=== PATIENT | male | born 1940 | race Caucasian/White ===

== ENCOUNTER 2021-02-08 05:26 | Inpatient (IN) | payer MEDICARE ==
[~2021-02-08] VITALS: Ht 175.3 cm; Wt 80.3 kg
[~2021-02-08 05:26] MED LIST: ALENDRONATE SOD35 MG; AMLODIPINE BESYL5 MG PO; CEPHALEXIN500 MG PO; DOCUSATE SODIU100 MG PO; FINASTERIDE5 MG PO; FLOMAX0.4 MG PO; NEURONTIN400 MG PO; TIZANIDINE HCL2 M1; TYLENOL325 MG PO
[2021-02-08] MEDS ORDERED: SODIUM CHLORIDE 0.9% 1000ML 1,000 ML ONE (05:54)
[2021-02-08] MEDS ORDERED: CEFTRIAXONE 1 GM VIAL ONE (05:54)
[2021-02-08] MEDS ORDERED: GENTAMICIN 80MG/NS 100 ML 200 ML IV ONE (05:55)
[2021-02-08 06:58] LABS: BASOPHILS % 0.5 % (0.0-1.0); EOSINOPHILS # (AUTO) 0.2 (0.0-0.4); EOSINOPHILS % 3.9 % (0.0-6.0); HEMATOCRIT 37.5 % (38.2-49.6); HEMOGLOBIN 12.4 g/dL (14.0-18.0); LYMPHOCYTES # (AUTO) 2.2 (1.0-3.2); LYMPHOCYTES % 38.5 % (18.0-39.1); MEAN CORPUSCULAR HEMOGLOBIN 30.4 pg (28-32); MEAN CORPUSCULAR HGB CONC 33.1 g/dL (31-35); MEAN CORPUSCULAR VOLUME 91.9 fL (81-99); MONOCYTES # (AUTO) 0.8 (0.2-0.8); MONOCYTES % 13.4 % (4.4-11.3); NEUTROPHILS # (AUTO) 2.4 (2.1-6.9); NEUTROPHILS % 43.5 % (38.7-80.0); PLATELET COUNT 297 x10e3/uL (140-360); RED BLOOD COUNT 4.08 x10e6/uL (4.3-5.7); RED CELL DISTRIBUTION WIDTH 13.3 % (11.7-14.4)
[2021-02-08] MEDS ORDERED: IOPAMIDOL 300MG/ML 50ML INFUS..BTL IV ONE (07:12)
[2021-02-08 07:16] LABS: CALCIUM 8.8 mg/dL (8.4-10.2); CREATININE, SERUM 0.88 mg/dL (0.72-1.25)
[2021-02-08] MEDS ORDERED: BELLADONNA/OPIUM 30 MG SUPP RC ONE (08:02)
[2021-02-08] MEDS ORDERED: ONDANSETRON HCL INJ 2MG/ML 2ML 2 MG/ML VIAL IV PRN (08:30)
[2021-02-08] MEDS ORDERED: PHENAZOPYRIDINE HCL 100 MG TAB PO PRN (08:30)
[2021-02-08] MEDS ORDERED: B&O 60MG R/S 60 MG SUPP PR PRN (08:30)
[2021-02-08] MEDS ORDERED: DIPHENHYDRAMINE HCL 25 MG CAP PO PRN (08:30)
[2021-02-08] MEDS: CEFTRIAXONE 1 GM in SODIUM CHLORIDE 0.9% 50ML 50 ML IV SCH (09:00)
[2021-02-08] MEDS: DOCUSATE SODIUM 100 MG CAP PO SCH ×2 (09:00→18:00)
[2021-02-08 09:10] LABS: BASOPHILS % 0.6 % (0.0-1.0); EOSINOPHILS # (AUTO) 0.2 (0.0-0.4); EOSINOPHILS % 2.1 % (0.0-6.0); HEMATOCRIT 37.7 % (38.2-49.6); HEMOGLOBIN 12.5 g/dL (14.0-18.0); LYMPHOCYTES # (AUTO) 1.5 (1.0-3.2); LYMPHOCYTES % 21.8 % (18.0-39.1); MEAN CORPUSCULAR HEMOGLOBIN 31.2 pg (28-32); MEAN CORPUSCULAR HGB CONC 33.2 g/dL (31-35); MONOCYTES # (AUTO) 0.5 (0.2-0.8); MONOCYTES % 6.4 % (4.4-11.3); NEUTROPHILS # (AUTO) 4.8 (2.1-6.9); NEUTROPHILS % 68.8 % (38.7-80.0); PLATELET COUNT 257 x10e3/uL (140-360); RED BLOOD COUNT 4.01 x10e6/uL (4.3-5.7); RED CELL DISTRIBUTION WIDTH 13.2 % (11.7-14.4)
[2021-02-08] MEDS ORDERED: ACETAMINOPHEN/CODEINE 300MG - 30MG TAB ONE (09:29)
[2021-02-08 09:30] LABS: ANION GAP 11.9 mmol/L (8-16); CALCIUM 8.5 mg/dL (8.4-10.2); CREATININE, SERUM 0.86 mg/dL (0.72-1.25); POTASSIUM 3.9 mmol/L (3.5-5.1)
[2021-02-08 12:16] VITALS: BP 119/80
[2021-02-08] MEDS ORDERED: LIDOCAINE HCL 2% LOCAL INJ 5 ML SDV VIAL INJ ONE (12:49)
[2021-02-08] MEDS ORDERED: DEXAMETHASONE SOD PHOS INJ 4 MG/ML VIAL ONE (12:49)
[2021-02-08] MEDS ORDERED: ONDANSETRON HCL INJ 2MG/ML 2ML 2 MG/ML VIAL ONE (12:49)
[2021-02-08] MEDS ORDERED: EPHEDRINE SULFATE INJ 50 MG/ML VIAL ONE (12:49)
[2021-02-08] MEDS ORDERED: POVIDONE IODINE 0.05% 0.05 % ML PO ONE (12:49)
[2021-02-08] MEDS ORDERED: SEVOFLURANE INHAL SOLN 250 ML PEN BTL ONE (12:49)
[2021-02-08] MEDS ORDERED: PROPOFOL IV EMULSION 10 MG/ML 20 ML VIAL ONE (12:49)
[2021-02-08 13:11] VITALS: BP 119/80
[2021-02-08] MEDS ORDERED: FENTANYL CITRATE/PF 100MCG/2 ML INJ ONE (13:24)
[2021-02-08] MEDS: D5.45%NS/KCL 20MEQ 1,000 ML IV SCH ×2 (14:30→22:52)
[2021-02-08 15:51] VITALS: BP 122/76
[2021-02-08 20:58] VITALS: BP 107/66
[2021-02-09] VITALS (9 sets, daily range): BP systolic 105–129; BP diastolic 50–93
[2021-02-09 05:04] LABS: BASOPHILS % 0.1 % (0.0-1.0); EOSINOPHILS % 0.2 % (0.0-6.0); HEMATOCRIT 33.4 % (38.2-49.6); HEMOGLOBIN 11.3 g/dL (14.0-18.0); LYMPHOCYTES # (AUTO) 2.2 (1.0-3.2); LYMPHOCYTES % 23.6 % (18.0-39.1); MEAN CORPUSCULAR HEMOGLOBIN 30.9 pg (28-32); MEAN CORPUSCULAR HGB CONC 33.8 g/dL (31-35); MEAN CORPUSCULAR VOLUME 91.3 fL (81-99); MONOCYTES # (AUTO) 1.1 (0.2-0.8); MONOCYTES % 11.9 % (4.4-11.3); NEUTROPHILS # (AUTO) 5.9 (2.1-6.9); PLATELET COUNT 258 x10e3/uL (140-360); RED BLOOD COUNT 3.66 x10e6/uL (4.3-5.7); RED CELL DISTRIBUTION WIDTH 13.2 % (11.7-14.4)
[2021-02-09 05:20] LABS: CALCIUM 8.2 mg/dL (8.4-10.2); CREATININE, SERUM 0.76 mg/dL (0.72-1.25)
[2021-02-09] MEDS: DOCUSATE SODIUM 100 MG CAP PO SCH ×2 (08:11→18:11)
[2021-02-09] MEDS: CEFTRIAXONE 1 GM in SODIUM CHLORIDE 0.9% 50ML 50 ML IV SCH (08:11)
[2021-02-09] MEDS ORDERED: DOCUSATE SODIUM 100 MG CAP PO SCH (09:00)
[2021-02-09] MEDS: FINASTERIDE 5 MG TAB PO SCH (10:27)
[2021-02-09] MEDS: SODIUM CHLORIDE 0.45% 1,000 ML IV SCH ×2 (10:27→23:50)
[2021-02-09] MEDS: TAMSULOSIN HCL 0.4 MG CAP PO SCH (10:27)
[2021-02-09] MEDS: AMLODIPINE BESYLATE 5 MG TAB PO SCH (10:27)
[2021-02-09] MEDS: GABAPENTIN 100 MG CAP PO SCH (20:50)
[2021-02-10] VITALS (8 sets, daily range): BP systolic 129–159; BP diastolic 81–93
[2021-02-10 04:47] LABS: BASOPHILS % 0.5 % (0.0-1.0); EOSINOPHILS # (AUTO) 0.3 (0.0-0.4); EOSINOPHILS % 4.2 % (0.0-6.0); HEMOGLOBIN 12.5 g/dL (14.0-18.0); LYMPHOCYTES # (AUTO) 2.6 (1.0-3.2); LYMPHOCYTES % 34.3 % (18.0-39.1); MEAN CORPUSCULAR HEMOGLOBIN 30.8 pg (28-32); MEAN CORPUSCULAR HGB CONC 33.8 g/dL (31-35); MEAN CORPUSCULAR VOLUME 91.1 fL (81-99); MONOCYTES # (AUTO) 0.9 (0.2-0.8); MONOCYTES % 12.2 % (4.4-11.3); NEUTROPHILS # (AUTO) 3.7 (2.1-6.9); NEUTROPHILS % 48.5 % (38.7-80.0); PLATELET COUNT 272 x10e3/uL (140-360); RED BLOOD COUNT 4.06 x10e6/uL (4.3-5.7); RED CELL DISTRIBUTION WIDTH 13.1 % (11.7-14.4)
[2021-02-10] MEDS: ACETAMINOPHEN/CODEINE 300MG - 30MG TAB PO PRN (05:10)
[2021-02-10 05:19] LABS: CALCIUM 8.3 mg/dL (8.4-10.2); CREATININE, SERUM 0.72 mg/dL (0.72-1.25)
[2021-02-10] MEDS: AMLODIPINE BESYLATE 5 MG TAB PO SCH (08:04)
[2021-02-10] MEDS: CEFTRIAXONE 1 GM in SODIUM CHLORIDE 0.9% 50ML 50 ML IV SCH (08:04)
[2021-02-10] MEDS: FINASTERIDE 5 MG TAB PO SCH (08:04)
[2021-02-10] MEDS: DOCUSATE SODIUM 100 MG CAP PO SCH ×2 (08:04→16:43)
[2021-02-10] MEDS: TAMSULOSIN HCL 0.4 MG CAP PO SCH (08:04)
[2021-02-10] MEDS: GABAPENTIN 100 MG CAP PO SCH (21:04)
[2021-02-11] VITALS: BP 153/97
[2021-02-11 04:00] VITALS: BP 135/88
[2021-02-11 05:03] LABS: BASOPHILS % 0.5 % (0.0-1.0); EOSINOPHILS # (AUTO) 0.3 (0.0-0.4); EOSINOPHILS % 3.1 % (0.0-6.0); HEMATOCRIT 38.5 % (38.2-49.6); HEMOGLOBIN 12.9 g/dL (14.0-18.0); LYMPHOCYTES # (AUTO) 2.6 (1.0-3.2); LYMPHOCYTES % 29.6 % (18.0-39.1); MEAN CORPUSCULAR HEMOGLOBIN 30.6 pg (28-32); MEAN CORPUSCULAR HGB CONC 33.5 g/dL (31-35); MEAN CORPUSCULAR VOLUME 91.4 fL (81-99); MONOCYTES # (AUTO) 1.4 (0.2-0.8); MONOCYTES % 15.4 % (4.4-11.3); NEUTROPHILS # (AUTO) 4.5 (2.1-6.9); NEUTROPHILS % 51.1 % (38.7-80.0); PLATELET COUNT 275 x10e3/uL (140-360); RED BLOOD COUNT 4.21 x10e6/uL (4.3-5.7); RED CELL DISTRIBUTION WIDTH 13.2 % (11.7-14.4)
[2021-02-11 05:26] LABS: CALCIUM 8.6 mg/dL (8.4-10.2); CREATININE, SERUM 0.78 mg/dL (0.72-1.25)
[2021-02-11 08:05] VITALS: BP 143/59
[2021-02-11 08:20] VITALS: BP 143/59
[2021-02-11] MEDS: AMLODIPINE BESYLATE 5 MG TAB PO SCH (09:58)
[2021-02-11] MEDS: DOCUSATE SODIUM 100 MG CAP PO SCH (09:58)
[2021-02-11] MEDS: TAMSULOSIN HCL 0.4 MG CAP PO SCH (09:58)
[2021-02-11] MEDS: CEFTRIAXONE 1 GM in SODIUM CHLORIDE 0.9% 50ML 50 ML IV SCH (09:59)
[2021-02-11] MEDS: FINASTERIDE 5 MG TAB PO SCH (09:59)
[2021-02-11 12:00] VITALS: BP 142/89
[2021-02-11] MEDS: ACETAMINOPHEN/CODEINE 300MG - 30MG TAB PO PRN (13:30)
[2021-02-11] MEDS ORDERED: ONDANSETRON HCL 4 MG ORAL DISINTEGRATING TAB PO PRN (15:15)
[2021-02-11] MEDS ORDERED: PYRIDIUM100 MG PO (15:55)
[2021-02-11] MEDS ORDERED: BENADRYL25 M1 PO (15:55)
[2021-02-11] MEDS ORDERED: tylenol ×2 (15:57→15:59)
[2021-02-11] MEDS ORDERED: tylenol #3 (16:02)
[2021-02-11] MEDS ORDERED: ONDANSETRON ODT4 MG PO (16:15)
[2021-02-11 16:40] VITALS: BP 129/83
== END 2021-02-11 16:40 | DRG 713 ==
LOC: OR 05:26 → PACU V 08:21 → MED/SURG 12:19
PROVIDERS: ADMIT Internal Medicine; ATTEND Internal Medicine
PROC: 0V508ZZ Destruction of Prostate, Via Natural or Artificial Opening Endoscopic (ICD-10-PCS; 2021-02-08)
PROC: 0T788ZZ Dilation of Bilateral Ureters, Via Natural or Artificial Opening Endoscopic (ICD-10-PCS; 2021-02-08)
PROC: BT141ZZ Fluoroscopy of Kidneys, Ureters and Bladder using Low Osmolar Contrast (ICD-10-PCS; principal; 2021-02-08 07:00)
DX: N40.1 Benign prostatic hyperplasia with lower urinary tract symptoms (principal); N13.8 Other obstructive and reflux uropathy; N39.0 Urinary tract infection, site not specified; R33.8 Other retention of urine; R39.14 Feeling of incomplete bladder emptying; N47.6 Balanoposthitis; N47.1 Phimosis; R35.1 Nocturia; Z87.440 Personal history of urinary (tract) infections; Z91.81 History of falling; I10 Essential (primary) hypertension
CPT/HCPCS: 36415; 71046; 74420; 80048; 83735; 85025; 93005; 96361; 97139; C1758; J0696; J1100; J1580; J2001; J2405; J3010; J7030